=== PATIENT | female | born 1985 | race Caucasian/White ===

== ENCOUNTER → 2024-09-24 14:56 | Outpatient (REF) | payer OTHER, SELFPAY | LOC: WDC 14:56 | PROVIDERS: ATTENDING PHYSICIAN Family Medicine | DX: Z12.31 Encounter for screening mammogram for malignant neoplasm of breast (principal) | CPT/HCPCS: 77063; 77067 ==

== ENCOUNTER → 2024-10-02 09:03 | Outpatient (REF) | payer OTHER, SELFPAY | LOC: WDC 09:03 | PROVIDERS: ATTENDING PHYSICIAN Family Medicine | DX: R92.8 Other abnormal and inconclusive findings on diagnostic imaging of breast (principal) | CPT/HCPCS: 76642 ==

== ENCOUNTER 2024-12-17 11:31 | Inpatient (IN) | payer OTHER, SELFPAY ==
[2024-12-16 22:15] VITALS: BP 154/96
[2024-12-17] VITALS (13 sets, daily range): BP systolic 100–133; BP diastolic 68–97; BMI 28.0
[2024-12-17] MEDS: TYLENOL 1000 MG PO (00:46)
[2024-12-17] MEDS: NSS 500 IV (00:48)
[2024-12-17] MEDS: BENADRYL 12.5 MG IV (00:48)
[2024-12-17] MEDS: REGLAN 10 MG IV ×2 (00:51→11:37)
[2024-12-17 01:11] LABS: % Basophils 0.5 % (0-2); % Eosinophils 2.9 % (0-6); % Immature Granulocytes 0.2 % (0-0.5); % Lymphocytes 31.5 % (20.5-51.1); % Monocytes 8.1 % (1.7-9.3); % Neutrophils 56.8 % (42.2-75.2); Absolute Eosinophils 0.3 10^3/uL (0-0.7); Absolute Lymphocytes 2.7 10^3/uL (1.2-3.4); Absolute Monocytes 0.7 10^3/uL (0.1-0.6); Absolute Neutrophils 4.9 10^3/uL (1.4-6.5); Hematocrit 37.5 % (37.0-47.0); Hemoglobin 13.2 g/dL (12.0-16.0); Mean Corp Hgb Conc. 35.2 g/dL (33.0-37.0); Mean Corpuscular Hgb 30.6 pg (27.0-31.0); Mean Corpuscular Volume 86.8 fL (81.0-99.0); Mean Platelet Volume 9.6 fL (7.4-10.4); Nucleated Red Blood Cells % 0 %; Platelet Count 219 10^3/uL (130-400); Red Blood Cell Count 4.32 10^6/uL (4.20-5.40); White Blood Cell Count 8.6 10^3/uL (4.8-10.8)
[2024-12-17 01:20] LABS: HCG, Serum Qualitative Screen Negative
[2024-12-17 01:23] LABS: ALT (SGPT) < 10 U/L (0-35); AST (SGOT) 16 U/L (14-36); Albumin 4.1 g/dl (3.5-5.0); Alkaline Phosphatase 73 U/L (38-126); Blood Urea Nitrogen 15 mg/dl (7-17); COVID-19 Antigen Negative (Negative); Calcium 9.3 mg/dl (8.4-10.2); Carbon Dioxide 22 mmol/L (22-30); Chloride 108 mmol/L (98-107); Estimated Creatinine Clearance 116 ml/min; Glucose 103 mg/dl (70-99); Magnesium 1.9 mg/dl (1.6-2.3); Potassium 3.9 mmol/L (3.5-5.1); Sodium 140 mmol/L (135-145); Total Bilirubin 0.7 mg/dl (0.2-1.3); Total Protein 6.5 g/dl (6.3-8.2); eGFR > 60.00
--- NOTE | 2024-12-17 01:28 | ED.GENMED ---
History of Present Illness
General
Chief Complaint: Headache
Source: patient
Exam Limitations: none
Time Seen by Provider: 12/17/24 00:26
Nursing documentation reviewed up to this point in time: agreed with
History of Present Illness
History of Present Illness:
Patient presents to ED secondary to persistent headache in the back of her head over the past 3 days, associated with episode of nausea and vomiting today. Patient reports photophobia. Denies dizziness. Denied blurred vision. Denies loss of
sensation or weakness. Denies difficulty with activation. Denies fever or chills. Denies sore throat. Denies recent illness. Denies sick contact. Denies history of headache. Denies nausea, vomiting, or diarrhea. Denies loss of appetite.
Denies previous history of similar symptoms. Denies family history of headache. Patient otherwise is healthy and does not take any medications daily. Patient has taken ibuprofen as well as Excedrin Migraine, without improvement in symptoms.
Review of Systems
Review of Systems
Allergies reviewed?: Yes
All Other Systems: ROS reviewed and negative except as documented in HPI and ROS
Constitutional: Reports no symptoms; Denies fever
EENT: Reports no symptoms; Denies sore throat or runny nose
Respiratory: Reports no symptoms; Denies cough
Cardiac: Reports no symptoms
ABD/GI: Reports nausea and vomiting; Denies abdominal pain or diarrhea
Musculoskeletal: Reports no symptoms
Skin: Reports no symptoms; Denies rash
Neurological: Reports headache; Denies dizzy, weakness or numbness
Phy Exam
Physical Exam
Physical Exam:
Physical Exam
General: mild painful distress, not acutely ill. afebrile
Head: nc/at. eomi
Neck: supple. no meningeal signs. normal range of motion. no lymphadenopathy noted
Heart: s1/s2 regular rate and rhythm
Lungs: no acute respiratory distress. clear bilaterally
Abdomen: normal bowel sounds. not tender.
Neuro: alert and oriented x 3. no focal neurological deficits. normal speech. normal gait
Skin: no rash
Psychiatric: well kept. interactive and cooperative
Extremities: no edema. no calf tenderness.
Course
Orders/Labs/Results
Orders:
Orders
12/17/24 00:35
0.9% Sodium Chloride 500 ml [Nss] 500 ml IV BOLUS
Diphenhydramine [Benadryl] 12.5 mg IV NOW STA
Metoclopramide [Reglan] 10 mg IV NOW STA
Test Result ONCE
12/17/24 00:36
Acetaminophen [Tylenol] 1,000 mg PO NOW STA
12/17/24 00:41
COVID-19 Antigen Urgent
Source: Nasal Swab
Complete Blood Count/With Diff Urgent
Comprehensive Metabolic Panel Urgent
HCG, Serum Qualitative Screen Urgent
Lyme Progressive Urgent
Comment: ADD ON
Magnesium Urgent
Influenza A+B Rapid Molecular Urgent
BAY Source: Nasal Swab
Specimen Description:
12/17/24 01:16
Add On- LAB Urgent
Tests Added?: lyme progressive
12/17/24 01:37
CT Angio Head W/Wo Iv Contrast [CT Head Angio W/wo Iv Contrast] Urgent
Comment:
Reason For Exam: posterior headache
12/17/24 03:36
Aspirin Low Dose EC [Aspir Low (Enteric Coated)] 81 mg .ROUTE .STK-MED ONE
12/17/24 03:37
Aspirin Low Dose EC [Aspir Low (Enteric Coated)] 81 mg PO NOW STA
12/17/24 04:29
Admit/Transfer Patient As Directed
Co-Sign Provider:
Level of Care: Observation services
Assign to:: Telemetry
Physician / Group: Mitch
Diagnosis: Vertebral Artery Aneurysm / Dissection
Reason for Telemetry: CVA/TIA
Date to Stop Telemetry: 12/20/24
Time to Stop Telemetry: 11:00
PRN Pain Medication Management As Directed
May give lesser potent ordered pain med per pt: Yes
preference::
Protocol:: Medication orders for pain may be administered in a
manner that supports deferring to patient preference
when the pt is:
- Requesting an ordered lesser potent pain medication.
Least to most potent pain medications are defined
as: acetaminophen < NSAID < tramadol < opioids
(morphine, oxycodone, hydromorphone).
- Requesting a lesser dose of the same medication IF
ORDERED.
- Requesting a less intrusive route of administration
if both routes are prescribed by the provider (PO <
IV).
12/17/24 04:30
Code Status As Directed
Resuscitation Status: Full Code
12/17/24 05:00
Flush (0.9% Sodium Chloride) [Flush (Nss)] See Dose Instructions IV PER PROTOCOL
12/17/24 05:01
Acetaminophen [Tylenol] 650 mg PO Q4HPRN PRN
Diphenhydramine [Benadryl] 25 mg IV Q6HPRN PRN
Metoclopramide [Reglan] 10 mg IV Q6HPRN PRN
Morphine Sulfate 2 mg IV Q4HPRN PRN
12/17/24 05:01
NEUROLOGY CONSULT Routine
Consulting Provider: Ritchie Hoang
Was physician already notified: Yes
Reason for consult: Vert Artery Aneurysm / Dissection
Activity As Directed
Activity Level: Ambulate
I/O [Intake/ Output] As Directed
Frequency: Per unit guidelines
Neurological Checks As Directed
Frequency: q4h
Pneumatic Compression Sleeves As Directed
Type: Knee high
Vital Signs As Directed
Frequency: Per unit guidelines
DX Deep Vein Thrombosis Video Routine
12/17/24 05:28
Basic Metabolic Panel IN AM
Cardiovascular Evaluation IN AM
Complete Blood Count/No Diff IN AM
Glycohemoglobin (HgbA1c) Routine
12/17/24 Breakfast
Regular
At Your Request: Full Participation
Does patient need a safe tray?: No
Reason for opting out of [employer] order writing: Provider Decision
Kiana [employer] With MRA [MA Kiana [employer] With] IN AM
Comment:
Reason For Exam: L Vertebral Artery Aneurysm / Dissection
Recent pill cam endoscopy?: No
MR Brain Without Contrast IN AM
Comment:
Reason For Exam: CVA / TIA
Recent pill cam endoscopy?: No
Neck With Contrast MRA [MA Neck With Contrast] IN AM
Comment:
Reason For Exam: L Vertebral Artery Aneurysm / Dissection
Recent pill cam endoscopy?: No
12/17/24 07:58
Ketorolac [Toradol] 30 mg IV Q8HPRN PRN
12/17/24 07:59
Diphenhydramine [Benadryl] 25 mg IV Q4HPRN PRN
Metoclopramide [Reglan] 10 mg IV Q6HPRN PRN
12/17/24 10:02
Discharge Patient As Directed
Discharge patient after: patient has bed at [facility] under Dr Monet
12/18/24 08:00
Aspirin Chewable [Low Strength Aspirin] 81 mg PO DAILY
12/20/24 11:00
DC Protocol for Telemetry ONCE
Abnormal Lab Results
12/17/24 12/17/24
00:41 05:28
RBC 4.18 L 10^6/uL
(4.20-5.40)
Hct 36.3 L %
(37.0-47.0)
Absolute Monos (auto) 0.7 H 10^3/uL
(0.1-0.6)
Chloride 108 H mmol/L 110 H mmol/L
(98-107) (98-107)
Carbon Dioxide 20 L mmol/L
(22-30)
Glucose 103 H mg/dl 103 H mg/dl
(70-99) (70-99)
12/17/24 05:28
12/17/24 05:28
Vital Signs
Initial and Last Documented VS:
Initial Vital Signs
Temp Pulse Resp BP Pulse Ox
97.8 F 92 20 154/96 100
12/16/24 22:15 12/16/24 22:15 12/16/24 22:15 12/16/24 22:15 12/16/24 22:15
Last Documented Vital Signs
Temp Pulse Resp BP Pulse Ox
97.6 F 87 13 121/81 98
12/17/24 09:00 12/17/24 13:00 12/17/24 13:00 12/17/24 13:00 12/17/24 13:00
MDM/Problems Addressed
MDM/Problems Addressed:
CTA head report reviewed and discussed with patient. Afterwards, report reviewed with on-call neurosurgery, Dr. Loomis, who agrees with vision radiology recommendation of obtaining MRI/MRA brain along with neurology consultation afterwards. On
call neurology () notified via [employer].
*Critical Care Note
Total Time (30-74mins, 75-104mins- exclusive of procedures): Not Applicable
ED Attending Note
-
Portions of this chart may have been created with voice recognition software.� Occasional wrong word or��sound alike� substitutions may have occurred due to the inherent limitations of voice recognition software.
Discharge Plan
Departure
Patient Disposition: Acute Care Hospital
Date of Disposition: 12/17/24
Time of Disposition: 03:38
Admit to: Telemetry
Discharge Problem:
Vertebral artery aneurysm
Hospital Transfer
Other hospital: [facility]
I certify that the patient requires transfer: Yes
Discussed case with accepting physician:
Reason for transfer: medical necessity, availability of service and specialties available
Interventions
Interventions:
*Risk Screen - Suicide Last Done: 12/16/24 22:15
*General Assessment Last Done: 12/17/24 00:41
*Neglect/Abuse Screening Last Done: 12/16/24 22:15
*ED- Fall Risk Assessment Last Done: 12/17/24 00:41
*ED COVID-19 Vaccine History Last Done: 12/17/24 00:41
ED- Neurological Assessment Last Done: 12/17/24 09:00
[2024-12-17] MEDS: ASPIR LOW (ENTERIC COATED) 81 MG PO (03:37)
--- NOTE | 2024-12-17 03:43 | EDRN ---
States feeling a little better, nausea has subsided and head feels a little better, Dr. Martinez in to go over CT results and plan for admission, patient asked for water and was provided to her, call lisa in reach, no further complaints
--- NOTE | 2024-12-17 04:34 | HPS.HSE ---
Family Physician
-
Family Physician: Sierra Johns MD
Chief Complaint
-
Headache
History of Present Illness
Patient is a 39y F with no significant PMH who presents to ED complaining of headache. Patient states that she initially noted pain in the L upper neck / lower occipital area on Tuesday afternoon. By Tuesday evening she had also developed L
frontal headache. She had associated nausea and has had multiple episodes of emesis related to the pain. Her symptoms have persisted over the past 3 days - prompting her to present to the ED for further evaluation.
Patient denies any associated vision changes, speech difficulty, numbness/ tingling, weakness or ataxia.
She does not have history of migraines / chronic headache syndromes.
No prior history of similar symptoms.
Patient denies any recent injury, trauma, strenuous activity, habitual neck cracking, chiropractic therapy, etc.
Medical History
Past Medical History
Past Medical History: Reports None
Past Surgical History: Reports None
Social History
Tobacco: Non-smoker
Alcohol: Occasional
Drug: None
Family History
Family History: Other (Nofamily history of cerebral aneurysm, CVA, etc)
Allergies / Home Medications
Allergies reflects when Allergies were last updated in [employer].
Home Medications with original date entered in [employer]
Allergy/Medication List:
Allergies
Allergy/AdvReac Type Severity Reaction Status Date / Time
Sulfa (Sulfonamide Allergy Hives Verified 12/16/24 22:18
Antibiotics)
sulfamethoxazole Allergy Hives Verified 12/16/24 22:18
[From Bactrim]
trimethoprim [From Bactrim] Allergy Hives Verified 12/16/24 22:18
Home Medications
No Meds [No Current Medications] 12/17/24
Review of Systems
-
History Source: Patient
A 12 point ROS was completed and negative except as noted: Yes
Constitutional: Denies Fever or Chills
Respiratory: Denies Cough or Trouble Breathing
Cardiac: Denies Chest Pain or Palpitations
Abdomen/GI: Reports Nausea and Vomiting; Denies Abdominal Pain or Diarrhea
: Denies Dysuria or Frequency
Musculoskeletal: Denies Joint Pain or Edema
Neurological: Reports Headache; Denies Dizzy, Weakness or Numbness
Psych: Denies Depression or Anxiety
Physical Exam
Vital Signs
Vital Signs
Temp Pulse Resp BP Pulse Ox
97.8 F 80 11 123/77 98
12/16/24 22:15 12/17/24 03:30 12/17/24 03:30 12/17/24 03:13 12/17/24 03:30
Physical Exam
General: Other (39y F in no acute distress.)
HEENT: Moist mucous membranes and PERRLA
Respiratory: Clear; No Wheezes, Rales or Rhonchi
Cardiac: S1/S2 and Regular Rhythm; No Murmur
Musculoskeletal: No Edema
Neuro: AO x 3 and Nonfocal/grossly intact
Laboratory Results
-
12/17/24 00:41
12/17/24 00:41
Laboratory Results
Total Bilirubin 0.7 mg/dl (0.2-1.3) 12/17/24 00:41
AST 16 U/L (14-36) 12/17/24 00:41
ALT < 10 U/L (0-35) 12/17/24 00:41
Alkaline Phosphatase 73 U/L (38-126) 12/17/24 00:41
Impression/Plan
-
A/P: Patient is a 39y F with no significant PMH who presents to ED complaining of headache / neck pain x 3 days.
Left Vertebral Artery Dissection / Aneurysm
Headache - Likely secondary to the above
- Observe overnight for further evaluation and treatment.
- Patient denies any symptoms suggestive of acute CVA. No focal neurologic findings on exam.
- Pain control / headache management.
- ASA daily for stroke risk reduction.
- Check MRI / MRA head and neck in the AM for further evaluation.
- Neurology consulted for additional recommendations.
- Follow for changes in headache, new focal deficits, etc.
DVT Prophylaxis: SCDs
Code Status: Full
[2024-12-17] MEDS: MORPHINE SULFATE 2 MG IV ×2 (05:29→09:35)
--- NOTE | 2024-12-17 05:51 | EDRN ---
Patient report pain coming back 8/10, medicated as ordered.
[2024-12-17 05:58] LABS: Hematocrit 36.3 % (37.0-47.0); Hemoglobin 12.9 g/dL (12.0-16.0); Mean Corp Hgb Conc. 35.5 g/dL (33.0-37.0); Mean Corpuscular Hgb 30.9 pg (27.0-31.0); Mean Corpuscular Volume 86.8 fL (81.0-99.0); Mean Platelet Volume 9.9 fL (7.4-10.4); Platelet Count 205 10^3/uL (130-400); Red Blood Cell Count 4.18 10^6/uL (4.20-5.40); Red Cell Dist. Width 12.2 % (11.5-14.5); White Blood Cell Count 7.6 10^3/uL (4.8-10.8)
[2024-12-17 06:24] LABS: Blood Urea Nitrogen 12 mg/dl (7-17); Calcium 8.9 mg/dl (8.4-10.2); Carbon Dioxide 20 mmol/L (22-30); Chloride 110 mmol/L (98-107); Estimated Creatinine Clearance 116 ml/min; Glucose 103 mg/dl (70-99); HDL Cholesterol 40 mg/dl; LDL Cholesterol, Calculated 97 mg/dl; Potassium 3.8 mmol/L (3.5-5.1); Sodium 138 mmol/L (135-145); Total Cholesterol 157 mg/dl (50-199); Triglyceride 103 mg/dl (10-149); Very Low Density Lipoprotein 20 mg/dl (0-30); eGFR > 60.00
--- NOTE | 2024-12-17 07:12 | CON.NEURO ---
Consultation
Order
Date of Consultation: 12/17/24
Requesting Provider: Santos Meyer DO
Reason for Consult: Headache
Neurology Consultation Note.
HPI: This is a 39-year-old right-handed woman who presented to [facility] on December 16, 2024 with headache. According to the patient she developed gradual in onset bioccipital severe nonpositional headache with associated nausea on the
day of presentation. No reports of head/neck trauma, excessive sneezing, recent chiropractor manipulation. The patient denied imbalance, vertigo, speech, language sensory, visual or motor symptoms.
ER VS: 154/96, 92, afebrile
PDMP:none
Labs: Normal platelets, WBCs, glucose�103, LDL�97.
CTA head/neck -left vertebral artery focal aneurysm up to 5 mm with suspected dissection.
PMH:none
PSH:none
SH: Non-smoker, works in retail
FH: Noncontributory
All: Bactrim
ROS: Constitutional: Negative. Negative for chills, fever and unexpected weight change.
HENT: Negative for ear pain, hearing loss, tinnitus and trouble swallowing.
Eyes: Negative. Negative for photophobia, pain and visual disturbance.
Respiratory: Negative for cough, choking and shortness of breath.
Cardiovascular: Negative for chest pain, palpitations and leg swelling.
Gastrointestinal: Negative for abdominal pain and vomiting.
Endocrine: Negative. Negative for cold intolerance.
Genitourinary: Negative for dysuria, flank pain and urgency.
Musculoskeletal: Negative for back pain, gait problem, neck pain and neck stiffness.
Skin: Negative for rash.
Allergic/Immunologic: Negative. Negative for immunocompromised state.
Neurological: Positive for headache
Psychiatric/Behavioral: Negative for behavioral problems, confusion and hallucinations.
General: Well developed. In no acute distress.
Cardio: Regular rate and rhythm without murmur. Extremities are without cyanosis or edema.
Neuro:
Mental Status: Alert, oriented to person, place, and date. Normal attention and recall. Good fund of knowledge. Follows complex requests across the midline. Comprehension, naming, and repetition intact.
Cranial Nerves: Pupils are equally round and reactive to light. EOMs full. Visual ha full to confrontation. No ptosis. No nystagmus. V1-V3 intact to light touch and pinprick bilaterally, symmetric. Face symmetric. Normal hearing AU. The
palate elevated well. SCMs and traps 5/5. Tongue midline. No dysarthria.
Motor: Normal bulk and tone. No pronator or arm drift. Strength 5/5 throughout. No clonus.
Reflexes: 2+ throughout the upper extremities and knees. 2/2 in AJs. Plantar responses flexor bilaterally.
Sensory: Normal vibration and JPS.
Coordination: No dysmetria or tremor.
Gait: deferred
Assessment and Plan:
I. Secondary headache
II. Left vertebral artery dissection
III. Distal left V3 segment aneurysm
-Transfer to [facility] for cerebral angiogram�neurosurgical care
-BP goal-normotension
-Continue aspirin 81 mg once a day
-Brain MRI without harris chio
-MRA head neck with additional axial T1 fat suppression sequences.
-IV Toradol 30 mg, Reglan 10 mg, Benadryl 25 mg Q8h PRN for moderate to severe headache.
-The plan was communicated with patient's attending.
I personally reviewed all radiology and labs along with past medical records pertinent to current medical problems. Total time spent in patient care is 60 minutes.
Thank you for allowing us to participate in the care of this patient. We will continue to follow. Please do not hesitate to contact us with any questions or concerns.
Subjective/Objective
Subjective Data
Date of Service: December 17, 2024
Objective Data
Vital Signs
Temp Pulse Resp BP Pulse Ox
36.6 C 69 18 116/79 96
12/16/24 22:15 12/17/24 05:45 12/17/24 05:45 12/17/24 05:00 12/17/24 05:45
Lab Results
12/17/24 05:28
12/17/24 05:28
Sodium 138 mmol/L (135-145) 12/17/24 05:
Potassium 3.8 mmol/L (3.5-5.1) 12/17/24 05:
BUN 12 mg/dl (7-17) 12/17/24 05:
Glucose 103 mg/dl (70-99) H 12/17/24:
Calcium 8.9 mg/dl (8.4-10.2) 12/17/24 05:
LDL Cholesterol, Calc 97 mg/dl 12/17/24 05:28
Patient Allergies
Sulfa (Sulfonamide Antibiotics) Allergy (Verified 12/16/24 22:18)
Hives
sulfamethoxazole [From Bactrim] Allergy (Verified 12/16/24 22:18)
Hives
trimethoprim [From Bactrim] Allergy (Verified 12/16/24 22:18)
Hives
Medications
-
Active Medications
Generic Name Dose Route Start Last Admin
Trade Name Freq PRN Reason Stop Dose Admin
Acetaminophen 650 mg 12/17/24 05:01
Acetaminophen 325 Mg Tablet PO 01/14/25 05:00
Q4HPRN PRN
Mild Pain / Temp > 101
Aspirin 81 mg 12/18/24 08:00
Aspirin 81 Mg Chewable Tablet PO 01/15/25 07:59
DAILY KEYON
Diphenhydramine HCl 25 mg 12/17/24 05:01
Diphenhydramine 50 Mg/Ml 1 Ml Vial IV 01/14/25 05:00
Q6HPRN PRN
Headache
Metoclopramide HCl 10 mg 12/17/24 05:01
Metoclopramide 10 Mg/2 Ml Vial IV 01/14/25 05:00
Q6HPRN PRN
Headache / nausea
Morphine Sulfate 2 mg 12/17/24 05:01 12/17/24 05:29
Morphine 2 Mg/Ml Syringe IV 12/31/24 05:00 2 mg
Q4HPRN PRN Administration
Severe Pain
Sodium Chloride 0 flush 12/17/24 05:00
Sodium Chloride 0.9% (Flush) Syringe IV 01/14/25 04:59
PER PROTOCOL KEYON
Home Medications
�Medication �Instructions �Recorded
No Meds [No Current Medications] 12/17/24
Vital Signs and Labs
-
Vital Signs and Labs:
Vital Signs
Temp Pulse Resp BP Pulse Ox
36.6 C 69 18 116/79 96
12/16/24 22:15 12/17/24 05:45 12/17/24 05:45 12/17/24 05:00 12/17/24 05:45
Lab Results
12/17/24 05:28
12/17/24 05:28
Sodium 138 mmol/L (135-145) 12/17/24 05:28
Potassium 3.8 mmol/L (3.5-5.1) 12/17/24 05:28
BUN 12 mg/dl (7-17) 12/17/24 05:28
Glucose 103 mg/dl (70-99) H 12/17/24 05:28
Calcium 8.9 mg/dl (8.4-10.2) 12/17/24 05:28
LDL Cholesterol, Calc 97 mg/dl 12/17/24 05:28
Medications
-
Medications:
Generic Name Dose Route Start Last Admin
Trade Name Freq PRN Reason Stop Dose Admin
Acetaminophen 650 mg 12/17/24 05:01
Acetaminophen 325 Mg Tablet PO 01/14/25 05:00
Q4HPRN PRN
Mild Pain / Temp > 101
Aspirin 81 mg 12/18/24 08:00
Aspirin 81 Mg Chewable Tablet PO 01/15/25 07:59
DAILY KEYON
Diphenhydramine HCl 25 mg 12/17/24 05:01
Diphenhydramine 50 Mg/Ml 1 Ml Vial IV 01/14/25 05:00
Q6HPRN PRN
Headache
Metoclopramide HCl 10 mg 12/17/24 05:01
Metoclopramide 10 Mg/2 Ml Vial IV 01/14/25 05:00
Q6HPRN PRN
Headache / nausea
Morphine Sulfate 2 mg 12/17/24 05:01 12/17/24 05:29
Morphine 2 Mg/Ml Syringe IV 12/31/24 05:00 2 mg
Q4HPRN PRN Administration
Severe Pain
Sodium Chloride 0 flush 12/17/24 05:00
Sodium Chloride 0.9% (Flush) Syringe IV 01/14/25 04:59
PER PROTOCOL KEYON
Home Medications
-
Home Medications
No Meds [No Current Medications] 12/17/24
--- NOTE | 2024-12-17 07:29 | EDRN ---
neurology currently at the pts bedside
--- NOTE | 2024-12-17 09:56 | EDRN ---
attending currently at the pts bedside
--- NOTE | 2024-12-17 09:59 | W.PN.UPDATE ---
Update Note
Progress Note Update
Patient examined and seen at bedside. Case discussed with Dr. Loomis from neurosurgery and Dr Foote from neurology. Concern for vertebral artery aneurysm/dissection. Neurosurgery here recommended patient to be transferred to [facility]
[place] for further angio and management. Called transfer center, patient is excepted under Dr. Monet (Neuro surgery). Transfer form signed. Patient,family and RN aware
--- NOTE | 2024-12-17 10:03 | W.DCSUMMARY ---
Discharge Summary
Discharge Data
Date of Admission: 12/17/24
Date of Discharge: 12/17/24
-
Pending Results: Yes
Hospital Course
Discharge diagnosis
Vertebral artery dissection/aneurysm
Hospital course:
39-year-old female came to the hospital for headache. CT scan was done admission which showed possible vertebral artery dissection with possibility of aneurysm. Neurology and neurosurgery was consulted. After thorough evaluation by neurosurgery,
they recommended patient to be transferred to tertiary care center for possible intervention. Patient was then accepted by Dr. Monet (neurosurgery) at [facility] for further management.
Discharge Plan
-
Patient Disposition: Acute Care Hospital
Referrals:
Sierra Johns MD [Family Provider] -
Prescriptions:
No Action
No Current Medications
0
Discharge Orders:
Discharge Patient (As Directed); Ordered 12/17/24
Ordered By: Boni Velasquez
Discharge Date and Time
Print Language: FINNISH
[2024-12-17 10:19] LABS: Glycohemoglobin (HgbA1c) 4.9 % (4.0-5.6)
--- NOTE | 2024-12-17 10:44 | CM ---
Pt currently in ED with plans for urgent transfer to [place] for concern for vertebral artery aneurysm/dissection
Discharge Disposition- transfer to [place]
[2024-12-17] MEDS: BENADRYL 25 MG IV (11:37)
[2024-12-17] MEDS: TORADOL 30 MG IV (11:37)
[2024-12-17 12:53] LABS: Lyme Antibody Screen, EIA Negative (Negative)
--- NOTE | 2024-12-17 13:44 | EDRN ---
this RN gave verbal report to [facility] Transport staff Zana
== END 2024-12-17 13:55 | disposition short-term general hospital (02) | DRG 301 ==
LOC: ED 11:31
PROVIDERS: ADMITTING PHYSICIAN Hospitalist; ATTENDING PHYSICIAN Internal Medicine; EMERGENCY PHYSICIAN Emergency Medicine; FAMILY PHYSICIAN Family Medicine; OTHER PHYSICIAN Psychiatry & Neurology Neurology
DX: I77.74 Dissection of vertebral artery (principal); Z11.52 Encounter for screening for COVID-19; Z79.82 Long term (current) use of aspirin
CPT/HCPCS: 70496; 80048; 80053; 80061; 83036; 83735; 84703; 85025; 85027; 86618; 87502; 87811; 96361; 96374; 96375; 99285; Q9967

== ENCOUNTER → 2025-03-26 12:48 | Outpatient (REF) | payer OTHER, SELFPAY | LOC: WDC 12:48 | PROVIDERS: ATTENDING PHYSICIAN Family Medicine | DX: R92.8 Other abnormal and inconclusive findings on diagnostic imaging of breast (principal) | CPT/HCPCS: 77061; 77065 ==